=== PATIENT | male | born 1985 | race African-American/Black ===

== ENCOUNTER 2017-11-30 01:47 | Emergency (ER) | payer OTHER ==
[~2017-11-30] VITALS: Ht 190.5 cm; Wt 87.1 kg
[2017-11-30 02:10] VITALS: BP_SYST 124
[2017-11-30 02:23] LABS: BILIRUBIN,URINE NEGATIVE (NEGATIVE); BLOOD, URINE NEGATIVE (NEGATIVE); CLARITY/URINE CLEAR (CLEAR); COLOR,URINE YELLOW (YELLOW); GLUCOSE,URINE NEGATIVE (NEGATIVE); KETONES,URINE NEGATIVE (NEGATIVE); LEUKOCYTE ESTERASE ,URINE NEGATIVE (NEGATIVE); NITRITE, URINE NEGATIVE (NEGATIVE); PH,URINE 6.5 (5.0-8.0); PROTEIN URINE NEGATIVE (NEGATIVE); UROBILINOGEN,URINE 0.2 (0.2-1.0)
[2017-11-30] MEDS ORDERED: AZITHROMYCIN 250 MG TABLET PO ONE (02:30)
[2017-11-30] MEDS ORDERED: cefTRIAXone 250 MG VIAL IM ONE (02:30)
[2017-11-30] MEDS ORDERED: metroNIDAZOLE 500 MG TABLET PO ONE (02:30)
[2017-11-30 02:51] VITALS: BP_SYST 120
== END 2017-11-30 02:51 | disposition home or self-care (01) ==
LOC: SED 01:47
DX: Z20.2 Contact with and (suspected) exposure to infections with a predominantly sexual mode of transmission (principal); F12.90 Cannabis use, unspecified, uncomplicated
CPT/HCPCS: 81003; 87491; 87591; 96372; 99284; J0696; Q0144

== ENCOUNTER 2017-12-29 04:21 | Emergency (ER) | payer OTHER ==
[~2017-12-29] VITALS: Ht 190.5 cm; Wt 86.2 kg
[2017-12-29 04:32] VITALS: BP_SYST 121
[2017-12-29 05:13] LABS: BILIRUBIN,URINE NEGATIVE (NEGATIVE); BLOOD, URINE NEGATIVE (NEGATIVE); CLARITY/URINE CLEAR (CLEAR); COLOR,URINE YELLOW (YELLOW); GLUCOSE,URINE NEGATIVE (NEGATIVE); KETONES,URINE NEGATIVE (NEGATIVE); LEUKOCYTE ESTERASE ,URINE NEGATIVE (NEGATIVE); NITRITE, URINE NEGATIVE (NEGATIVE); PROTEIN URINE NEGATIVE (NEGATIVE); UROBILINOGEN,URINE 0.2 (0.2-1.0)
[2017-12-29] MEDS ORDERED: cefTRIAXone 250 MG VIAL IM ONE (05:45)
[2017-12-29] MEDS ORDERED: AZITHROMYCIN 250 MG TABLET PO ONE (05:45)
[2017-12-29 06:14] VITALS: BP_SYST 127
[2018-01-02 00:09] LABS: CHLAMYDIA TRACHOMATIS NAA Negative (Negative); NEISSERIA GONORRHOEAE NAA Negative (Negative)
== END 2017-12-29 06:14 | disposition home or self-care (01) ==
LOC: SED 04:21
DX: N34.2 Other urethritis (principal)
CPT/HCPCS: 81003; 87491; 87591; 96372; 99284; J0696; Q0144

== ENCOUNTER 2020-06-30 03:55 | Emergency (ER) | payer OTHER ==
[~2020-06-30] VITALS: Ht 188 cm; Wt 90.7 kg
[2020-06-30 04:06] VITALS: BP_SYST 120
--- NOTE | 2020-06-30 04:06 | NUR ---
Patient to ER bed 5 to gown for evaluation. Side rails up. Report given to MARIANNA RODRÍGUEZ.
--- NOTE | 2020-06-30 04:27 | NUR ---
ER Dr. BLUE at bedside examining patient.
[2020-06-30] MEDS ORDERED: AZITHROMYCIN 250 MG TABLET PO ONE (04:30)
[2020-06-30] MEDS ORDERED: cefTRIAXone 500 MG in LIDOCAINE 1%, 20 ML MDV 1 ML IM ONE (04:30)
--- NOTE | 2020-06-30 04:30 | NUR ---
PT A&O X4 C/O OF BURNING URINATION AND FREQUENT URINATING STARTING MONDAY. PT DENIES ABDOMINAL PAIN, NAUSEA, VOMITING, CONSTIPATION, DIARRHEA. PT DENIES BLOOD IN URINE.
--- NOTE | 2020-06-30 04:43 | NUR ---
PT MEDICATED PER MD ORDERS. PT TOLERATED WELL.
[2020-06-30 04:50] VITALS: BP_SYST 122
--- NOTE | 2020-06-30 04:50 | NUR ---
Patient given written and verbal discharge instructions and verbalizes understanding. ER MD discussed with patient the results and treatment provided. Patient in stable condition. ID arm band removed. No Rx given. Patient educated on pain management and to follow up with PMD. Pain Scale 2/10. Opportunity for questions provided and answered. Medication side effect fact sheet provided.
[2020-07-02 17:22] LABS: CHLAMYDIA TRACHOMATIS NAA Negative (Negative); NEISSERIA GONORRHOEAE NAA Negative (Negative)
== END 2020-06-30 04:50 | disposition home or self-care (01) ==
LOC: SED 03:55
DX: R30.0 Dysuria (principal)
CPT/HCPCS: 81002; 87491; 87591; 96372; 99283; J0696; Q0144

== ENCOUNTER 2021-10-24 04:30 | Emergency (ER) | payer SELFPAY ==
[2021-10-24 04:41] VITALS: BP_SYST 137
[2021-10-24] MEDS ORDERED: cefTRIAXone 500 MG in LIDOCAINE 1%, 20 ML MDV 1 ML IM ONE (05:15)
[2021-10-24] MEDS ORDERED: AZITHROMYCIN 250 MG TABLET PO ONE (05:15)
[2021-10-24 05:49] LABS: BILIRUBIN,URINE NEGATIVE (NEGATIVE); BLOOD, URINE NEGATIVE (NEGATIVE); CLARITY/URINE CLEAR (CLEAR); COLOR,URINE YELLOW (YELLOW); GLUCOSE,URINE NEGATIVE (NEGATIVE); KETONES,URINE NEGATIVE (NEGATIVE); LEUKOCYTE ESTERASE ,URINE NEGATIVE (NEGATIVE); NITRITE, URINE NEGATIVE (NEGATIVE); PH,URINE 5.5 (5.0-8.0); PROTEIN URINE NEGATIVE (NEGATIVE); UROBILINOGEN,URINE 0.2 (0.2-1.0)
== END 2021-10-24 06:00 | disposition home or self-care (01) ==
LOC: SED 04:30
DX: N34.2 Other urethritis (principal); A64 Unspecified sexually transmitted disease
CPT/HCPCS: 81003; 87491; 87591; 96372; 99283; J0696; Q0144

== ENCOUNTER 2022-12-26 03:44 | Emergency (ER) | payer OTHER ==
[~2022-12-26] VITALS: Ht 190.5 cm; Wt 97.1 kg
[2022-12-26 04:00] VITALS: BP_SYST 135
--- NOTE | 2022-12-26 04:00 | NUR ---
Patient placed in ER bed 4 for evaluation. Bed placed in lowest position with side rails up. Instructed to notify ED staff for any changes in condition or worsening of symptoms while waiting to be seen by a provider. Patient verbalized understanding.
--- NOTE | 2022-12-26 04:17 | NUR ---
Dr. Silver at bedside examining the patient.
[2022-12-26] MEDS ORDERED: DOXY100C PO (04:28)
[2022-12-26] MEDS ORDERED: cefTRIAXone 250 MG VIAL IM ONE (04:30)
[2022-12-26 04:31] LABS: BILIRUBIN,URINE NEGATIVE (NEGATIVE); BLOOD, URINE NEGATIVE (NEGATIVE); CLARITY/URINE CLEAR (CLEAR); COLOR,URINE YELLOW (YELLOW); GLUCOSE,URINE NEGATIVE (NEGATIVE); KETONES,URINE NEGATIVE (NEGATIVE); LEUKOCYTE ESTERASE ,URINE NEGATIVE (NEGATIVE); NITRITE, URINE NEGATIVE (NEGATIVE); PROTEIN URINE NEGATIVE (NEGATIVE); UROBILINOGEN,URINE 0.2 (0.2-1.0)
--- NOTE | 2022-12-26 04:46 | NUR ---
Patient left without printed and verbal discharge instructions. ER MD discussed with patient the treatment plan but patient refused to have the blood test done. Patient in stable condition.
== END 2022-12-26 04:46 | disposition home or self-care (01) ==
LOC: SED 03:44
DX: A64 Unspecified sexually transmitted disease (principal); R30.0 Dysuria; Z79.899 Other long term (current) drug therapy
CPT/HCPCS: 99283; 96372; 81003; J0696